=== PATIENT | female | born 1945 | race Caucasian/White ===

== ENCOUNTER 2019-01-04 07:48 | Day surgery (SDC) | payer BC ==
[2019-01-01 10:45] VITALS: BMI 21.2
--- NOTE | 2019-01-03 14:10 | HP ---
HISTORY OF PRESENT ILLNESS: Ms. Paulino is a very pleasant 73-year-old woman here today to discuss the onset of a right-sided lower back and severe right lower extremity pain that fits well in L5 pattern. This began back in the middle of September without warning. She has been seeing Dr. Colón, who performed an aspiration of what appears to be a synovial cyst on the MRI, but this was unsuccessful and she has had no release in this is distressing to her and hopes to have this fixed as soon as possible. MRI of disk from an outside facility reveals a very well appearing lumbar spine other than hypertrophic joint with large synovial cyst on the right at L4-L5 that displaces the descending L5 nerve . PHYSICAL EXAMINATION: On examination, she is alert and oriented x3. Gait is normal. Mildly antalgic. Lower extremity motor exam is normal. There is a positive right straight leg raise. PAST MEDICAL HISTORY: Significant for osteoporosis and migraine headaches. PAST SURGICAL HISTORY: Thyroidectomy and fixation of a broken arm. CURRENT MEDICATIONS: Fosamax and VESIcare. ALLERGIES: TO CODEINE AND DEMEROL. ASSESSMENT: Lumbar radiculopathy stenosis. PLAN: Dr. Brown met with the patient, reviewed imaging, advocated for a right L4 decompression and synovial cystectomy. He explained to the patient the risks, benefits, and alternatives to the procedure and the patient expressed understanding and elected to move forward with the surgery as discussed. I do believe the patient is mentally competent and capable to making medical decisions for herself and we will move forward with surgery as planned. Job ID: [id number]
[2019-01-04] MEDS ORDERED: Thrombin 5000 UNITS/5 ML VIAL ONE (09:20)
[2019-01-04] MEDS ORDERED: Bupivacaine HCl 0.5%/Epinephrine 1:200,000/PF 30 ml Vial ONE (09:20)
[2019-01-04] MEDS ORDERED: Dexamethasone 20 MG/5 ML VIAL ONE (09:25)
[2019-01-04] MEDS ORDERED: Lidocaine 2% PF 5 ML VIAL ONE (09:25)
[2019-01-04] MEDS ORDERED: Ondansetron PF 4 MG/2 ML Vial ONE (09:25)
[2019-01-04] MEDS ORDERED: Glycopyrrolate 0.2 MG/ML 5 ML SYRINGE ONE (09:25)
[2019-01-04] MEDS ORDERED: Rocuronium Bromide 10 MG/ML (10ML VIAL) ONE (09:25)
[2019-01-04] MEDS ORDERED: diphenhydrAMINE 50 MG/ML VIAL ONE (09:25)
[2019-01-04] MEDS ORDERED: PROPOFOL 200 MG/20 ML VIAL ONE (09:25)
[2019-01-04] MEDS ORDERED: Ketorolac Tromethamine 30 MG/ML VIAL ONE (09:25)
[2019-01-04] MEDS ORDERED: Fentanyl 100 MCG/2 ML VIAL ONE (09:48)
--- NOTE | 2019-01-04 12:14 | OP ---
DATE OF PROCEDURE: 01/04/2019 [employer]AKING MACHINE OPERATOR: Jose A Landin PA-C INDICATION: Pain. DIAGNOSIS: Lumbar radiculopathy. PROCEDURE PERFORMED: L4-L5 right-sided decompression with resection of synovial cyst. ANESTHESIA: General. DESCRIPTION OF PROCEDURE: The patient was brought into the operating room and placed under general anesthesia. She was flipped from the supine to prone position on the operating room table. A linear incision was planned over L4-L5. After prepping and draping and after an appropriate preoperative pause, the incision was created. The soft tissues were swept right of midline. A self-retaining retractor was placed. After confirming the appropriate level, high-speed cutting drill bit as well as 2, 3, and 4 mm Kerrisons were used to perform hemilaminectomy along the inferior aspect of L4 and the superior aspect of L5. The laminectomy was extended laterally to encompass the medial aspect of the facet joint. There was obvious synovial cyst present, a component of which was hemorrhagic. This was removed until the exiting L4 and descending L5 nerve roots were well decompressed. The wound was irrigated. Hemostasis was maintained throughout. The wound was then closed in anatomic layers and a pressure dressing was applied. There were no known procedural complications. Job ID: [id number]
== END 2019-01-04 13:37 | disposition home or self-care (01) ==
LOC: SDC 07:48
PROVIDERS: ATTEND Neurological Surgery
PROC: 01NB0ZZ Release Lumbar Nerve, Open Approach (ICD-10-PCS; principal; 2019-01-04)
DX: M54.16 Radiculopathy, lumbar region (principal); M71.38 Other bursal cyst, other site; M81.0 Age-related osteoporosis without current pathological fracture; Z88.5 Allergy status to narcotic agent
CPT/HCPCS: 76000; J0131; J0670; J0690; J1100; J1200; J1885; J2001; J2405; J2704; J3010